=== PATIENT | male | born 1970 | race Caucasian/White ===

== ENCOUNTER 2019-01-31 17:09 | Emergency (ER) | payer OTHER, MEDICAID ==
[2019-01-31 17:29] VITALS: TEMP 97.8
[2019-01-31] MEDS ORDERED: SOLUMEDROL 125 MG/2 ML 125 MG/2 ML PDS IM ONE (17:33)
[2019-01-31] MEDS ORDERED: SOLUMEDROL 125 MG/2 ML 125 MG/2 ML PDS ONE (17:35)
[2019-01-31 18:25] VITALS: BP 104/88; PULSE 76; RESP 20; O2SAT 96
== END 2019-01-31 18:35 | disposition home or self-care (01) | DRG 918 ==
LOC: ED 17:09
DX: T42.6X5A Adverse effect of other antiepileptic and sedative-hypnotic drugs, initial encounter (principal); R21 Rash and other nonspecific skin eruption
CPT/HCPCS: 96372; 99282; 99283; J2930